=== PATIENT | female | born 2000 | race Caucasian/White ===

== ENCOUNTER 2022-12-19 14:14 | Day surgery (SDC) | payer OTHER ==
[2022-12-19 14:50] VITALS: BMI 40.6
== END 2022-12-19 15:20 | disposition home or self-care (01) ==
LOC: CSHLD/OP 14:14
PROVIDERS: ATTEND Obstetrics & Gynecology
DX: O16.3 Unspecified maternal hypertension, third trimester (principal); Z3A.38 38 weeks gestation of pregnancy
CPT/HCPCS: 99283

== ENCOUNTER 2022-12-27 00:35 | Inpatient (IN) | payer OTHER ==
[2022-12-27 01:40] LABS: Fetal Membranes Rupture RUPTURE DETECTED (No Rupture)
[2022-12-27 02:19] VITALS: BMI 40.6
[2022-12-27 02:42] LABS: Hematocrit 33.1 % (34.9-44.5); Hemoglobin 10.8 g/dL (12.0-15.5); Mean Corpuscular HGB CONC 32.6 g/dL (32.0-36.0); Mean Corpuscular Hemoglobin 26.9 pg (27.0-33.0); Mean Corpuscular Volume 82.3 fl (81.6-98.3); Mean Platelet Volume 12.4 fl (7.4-10.4); Platelet Count 246 10x3/uL (150-450); RBC Distribution Width 14.8 % (11.5-14.5); Red Blood Cell (RBC) Count 4.02 10x6/uL (3.90-5.03); White Blood Cell (WBC) Count 13.6 10x3/uL (3.5-10.5)
[2022-12-27] MEDS ORDERED: fentaNYL 50 mcg/mL 1 mL Vial SLOW IVP PRN (02:43)
[2022-12-27] MEDS ORDERED: Tranexamic Acid 1,000 MG/10 ML VIAL IVP PRN (02:43)
[2022-12-27] MEDS ORDERED: Oxytocin 30 units/NS 500 ML 500 ML IVPB SCH (02:45)
[2022-12-27] MEDS ORDERED: Promethazine HCl 25 MG/ML VIAL IM PRN ×2 (02:45→03:07)
[2022-12-27] MEDS ORDERED: Oxytocin 30 units/NS 500 ML 500 ML IV SCH (02:45)
[2022-12-27] MEDS ORDERED: Misoprostol 200 MCG TAB RC PRN (02:45)
[2022-12-27] MEDS ORDERED: Lidocaine 1% (PF) 30 ML VIAL SC PRN (02:45)
[2022-12-27] MEDS ORDERED: Acetaminophen 500 MG TAB PO PRN (02:45)
[2022-12-27] MEDS ORDERED: Ondansetron PF 4 MG/2 ML Vial IVP PRN ×2 (02:45→03:07)
[2022-12-27] MEDS ORDERED: hydrALAZINE 20 MG/ML VIAL SLOW IVP PRN ×2 (02:45→06:34)
[2022-12-27] MEDS ORDERED: Carboprost 250 MCG/ML AMP IM PRN (02:45)
[2022-12-27] MEDS ORDERED: Methylergonovine 0.2 MG/ML VIAL IM PRN (02:45)
[2022-12-27] MEDS ORDERED: fentaNYL/Ropivacaine Epidural 100 ML ONE (02:53)
[2022-12-27] MEDS ORDERED: ePHEDrine Sulfate 50 MG/10 ML VIAL SLOW IVP PRN (03:07)
[2022-12-27] MEDS ORDERED: Moisturizing Cream (Eucerin) 113 GM JAR TOP PRN (03:07)
[2022-12-27] MEDS ORDERED: Acetaminophen 325 MG TAB PO PRN (03:07)
[2022-12-27] MEDS ORDERED: Lactated Ringer's 500 ML IV PRN (03:07)
[2022-12-27] MEDS ORDERED: Naloxone HCl 0.4 mg/ml Vial IVP PRN ×2 (03:07)
[2022-12-27] MEDS ORDERED: diphenhydrAMINE 50 MG/ML VIAL IVP PRN (03:07)
[2022-12-27 03:13] LABS: HBSAg Index 0.14 S/CO (0-0.99); Hep B Surf Ag - L&D Non-Reactive S/CO (NonReactive)
[2022-12-27 03:14] LABS: Syphilis Antibody Nonreactive (Nonreactive); Syphilis Antibody Index 0.03 S/CO (<1.00 Non-Reactive)
[2022-12-27] MEDS ORDERED: fentaNYL 2 mcg/Ropivacaine 0.2% Epidural 100 ML CADD EPIDURAL SCH (03:15)
[2022-12-27] MEDS ORDERED: Communication Order-Pharmacy FS SCH (03:15)
[2022-12-27] MEDS ORDERED: Preparation H Ointment 28 GM TUBE PR PRN (06:34)
[2022-12-27] MEDS ORDERED: diphenhydrAMINE 25 MG CAP PO PRN (06:34)
[2022-12-27] MEDS ORDERED: Milk Of Magnesia 30 ML UDCUP PO PRN (06:34)
[2022-12-27] MEDS ORDERED: Bisacodyl 10 MG SUPP PR PRN (06:34)
[2022-12-27] MEDS ORDERED: traMADol HCl 50 MG TAB PO PRN (06:34)
[2022-12-27] MEDS ORDERED: Boostrix 0.5 ML (Tdap) VIAL (>/=7 yrs of age) IM ONE (06:34)
[2022-12-27] MEDS ORDERED: Lanolin Ointment 7 GM TUBE TOP PRN (06:34)
[2022-12-27] MEDS ORDERED: Benzocaine-Menthol 82.5 ML CAN TOP PRN (06:34)
[2022-12-27] MEDS ORDERED: Bupivacaine 0.25% HCL 30 ML VIAL ONE (08:00)
[2022-12-27] MEDS: Docusate 100 MG CAP PO SCH ×2 (10:54→21:38)
[2022-12-27] MEDS: Prenatal Vitamin 1 TAB PO SCH (10:54)
[2022-12-27] MEDS: Ferrous Sulfate 325 MG TAB PO SCH ×2 (10:54→17:44)
[2022-12-27] MEDS: Ibuprofen 800 MG TAB PO SCH ×2 (13:43→21:38)
[2022-12-28] MEDS: Ibuprofen 800 MG TAB PO SCH ×3 (05:19→21:23)
[2022-12-28] MEDS: Prenatal Vitamin 1 TAB PO SCH (09:14)
[2022-12-28] MEDS: Docusate 100 MG CAP PO SCH ×2 (09:14→21:23)
[2022-12-28] MEDS: Ferrous Sulfate 325 MG TAB PO SCH (09:58)
[2022-12-28 20:04] VITALS: TEMP 98.1
[2022-12-29] MEDS: Ibuprofen 800 MG TAB PO SCH (05:51)
[2022-12-29] MEDS: Docusate 100 MG CAP PO SCH (07:44)
[2022-12-29] MEDS: Prenatal Vitamin 1 TAB PO SCH (07:44)
[2022-12-29 07:46] VITALS: BP 116/72
[2022-12-29] MEDS: Ferrous Sulfate 325 MG TAB PO SCH (08:07)
== END 2022-12-29 13:35 | disposition home or self-care (01) | DRG 807 ==
LOC: CSHLD/OP 00:35 → CSHLD 02:02 → CSHPP 09:10
PROVIDERS: ADMIT Obstetrics & Gynecology; ATTEND Obstetrics & Gynecology
PROC: 10E0XZZ Delivery of Products of Conception, External Approach (ICD-10-PCS; principal; 2022-12-27)
PROC: 0KQM0ZZ Repair Perineum Muscle, Open Approach (ICD-10-PCS; 2022-12-27)
DX: O70.1 Second degree perineal laceration during delivery (principal); Z37.0 Single live birth; Z3A.39 39 weeks gestation of pregnancy
CPT/HCPCS: 51702; 84112; 85027; 86780; 86850; 86900; 86901; 87340; 99285; S0020